=== PATIENT | female | born 1995 | race Caucasian/White ===

== ENCOUNTER 2016-03-26 16:07 | Inpatient (IN) | payer OTHER ==
[~2016-03-26] VITALS: Ht 167.6 cm; Wt 84.5 kg
[2016-03-26 16:10] VITALS: BP 126/77
--- NOTE | 2016-03-26 16:13 | NUR ---
Pt admitted to room 301 via w/c accompanied by Volunteer. Pt awake/alert/oriented. See admission database for further assessment.
[2016-03-26] MEDS ORDERED: PROMETHAZINE HCL INJ 12.5 MG in SODIUM CHLORIDE 25 ML IV PRN (16:35)
[2016-03-26] MEDS ORDERED: ONDANSETRON 4 MG (ZOFRAN) ORAL DISSOLVE TAB PO PRN (16:35)
[2016-03-26] MEDS ORDERED: MAG HYDROX/AL HYDROX/SIMETH 200-200-20/5 ML (MAG-AL PLUS) 30 ML UDC PO PRN (16:35)
[2016-03-26] MEDS ORDERED: IBUPROFEN 600 MG (MOTRIN) TAB PO PRN (16:35)
[2016-03-26] MEDS ORDERED: CALCIUM CARBONATE CHEWABLE 300 MG (TUMS) TABLET PO PRN (16:35)
[2016-03-26] MEDS ORDERED: epiNEPHrine (RACEMIC) 2.25% NEB SOLN 11.25 MG/0.5 ML VIAL INH ONE ×2 (16:45→16:56)
[2016-03-26 16:47] VITALS: BP 126/77
[2016-03-26] MEDS ORDERED: ALBUTEROL 0.083% NEB SOLUTION 2.5 MG/3 ML VIAL INH PRN (17:00)
[2016-03-26] MEDS ORDERED: DEXAMETHASONE 10 MG/ML (DECADRON) VIAL IV ONE (17:00)
[2016-03-26] MEDS ORDERED: NS FLUSH 3 ML PRN IV (17:00)
[2016-03-26 17:02] LABS: BASOPHILS % (AUTO) 0 % (0-2); EOSINOPHILS % (AUTO) 0 % (0-4); LYMPHOCYTES # (AUTO) 0.8 X10^3; MEAN CORPUSCULAR HEMOGLOBIN 28.7 PG (26.0-34.0); MEAN PLATELET VOLUME 11.1 FL (6.0-9.5); MONOCYTES # (AUTO) 0.1 X10^3; MONOCYTES % (AUTO) 2 % (3-11); NEUTROPHILS # (AUTO) 5.1 X10^3; NEUTROPHILS % (AUTO) 85 % (51-67); PLATELET COUNT 239 10^3uL (150-450); WHITE BLOOD COUNT 6.03 10^3uL (4.0-11.0)
[2016-03-26 17:03] LABS: MEAN CORPUSCULAR HGB CONC 36.7 g/dL (31.0-37.0); MEAN CORPUSCULAR VOLUME 78 FL (80-100)
[2016-03-26 17:15] LABS: ALBUMIN 4.4 g/dL (3.4-5.0); ANION GAP 18.4 MEQ/L (3-15); TOTAL PROTEIN 7.7 g/dL (6.4-8.5)
--- NOTE | 2016-03-26 17:33 | NUR ---
MED REC COMPLETED-current med list obtained from Ext Med History application and retail pharmacy ([facility]).
[2016-03-26] MEDS ORDERED: epiNEPHrine (RACEMIC) 2.25% NEB SOLN 11.25 MG/0.5 ML VIAL INH PRN (17:45)
--- NOTE | 2016-03-26 18:09 | NUR ---
Pt in semi-chan's position eating supper, watching tv. Occassional cough. states the breathing treatment (racemic epi) helped. IV Bolus infusing as ordered. 20g LBH intact.
--- NOTE | 2016-03-26 18:32 | NUR ---
UA sent to lab.
[2016-03-26 18:35] LABS: BILIRUBIN,URINE Negative (Negative); CLARITY,URINE Clear; COLOR,URINE Yellow; GLUCOSE, URINE (UA) Trace (Negative); LEUKOCYTE ESTERASE ,URINE Trace (Negative); PH,URINE 7.5 (5.0 - 8.0); UROBILINOGEN,URINE 0.2 mg/dL (0.2-1.0)
[2016-03-26 18:40] LABS: URINE CENTRIFUGED VOLUME 12 mL
[2016-03-26 18:42] LABS: RBC,URINE None Seen /HPF
[2016-03-26 19:58] VITALS: BP 120/70
--- NOTE | 2016-03-26 20:00 | NUR ---
Patient rests in bed. HOB elevated 45 degrees. Is in no respiratory distress. States that her throat is sore. Did explain to patient that her labs came back and she does have a virus. Mother and brother at bedside. Patient wanting popsicle. No other needs at present.
--- NOTE | 2016-03-26 21:00 | NUR ---
Patient breathing harder. Oxygen sat 98%. Dr in to see patient and discuss plan of care with family. Dr changed order for RT treatments. RT did another treatment, and patient rests better. Family remains at bedside.
[2016-03-26] MEDS: epiNEPHrine (RACEMIC) 2.25% NEB SOLN 11.25 MG/0.5 ML VIAL INH PRN ×2 (21:03→23:19)
[2016-03-26] MEDS: ACETAMINOPHEN 325 MG TAB (TYLENOL) PO PRN (21:37)
--- NOTE | 2016-03-26 21:37 | NUR ---
Tylenol 650mg administered per patient request for sore throat.
[2016-03-26 23:52] VITALS: BP 125/56
--- NOTE | 2016-03-27 01:00 | NUR ---
Patient resting quietly at present. Respirations even and non-labored.
[2016-03-27] MEDS: epiNEPHrine (RACEMIC) 2.25% NEB SOLN 11.25 MG/0.5 ML VIAL INH PRN ×3 (02:35→17:52)
--- NOTE | 2016-03-27 05:58 | NUR ---
Patient rested well tonight. Breathing treatments are helpful. No respiratory difficulties noted this morning. No concerns at this time.
[2016-03-27 06:10] VITALS: BP 118/77
[2016-03-27 07:43] VITALS: BP 120/70
--- NOTE | 2016-03-27 08:03 | NUR ---
NUTRITION ASSESSMENT Level 1 Patient: Sari Gonzalez Age/Sex: 20/F Date Screened: [birth year] Weight: 185.9#/84.5 kg Height: 66 inches Primary Diagnosis: acute respiratory distress, tracheobronchitis Diet Order: regular Relevant labs: N/A Food allergies: N Nutrition Assessment Criteria Age over 80: N Body Mass Index (BMI) under 19: N Admission Screening Indicates Risk? N Moderate/High Risk Diagnosis: N TPN or PPN: N NPO or clear liquid diet: N Serum Glucose <70 or >180: N/A Hgb A1c >6.7: N/A Total: 0 points Risk Screen: _X_ Patient at low nutritional risk based on available data; reevaluate in 5-7 days __ Patient at moderate nutritional risk based on available data; reevaluate in 3-5 days __ Patient at high nutritional risk; complete Nutrition Assessment within 48 hours of admission. Comments: Normally healthy female with acute respiratory distress secondary to parainfluenza 2. Pt. denies weight changes, no GI concerns. Will reassess as documented above.
[2016-03-27] MEDS: ACETAMINOPHEN 325 MG TAB (TYLENOL) PO PRN (08:11)
[2016-03-27] MEDS: NS FLUSH 3 ML DAILY IV SCH (08:11)
--- NOTE | 2016-03-27 08:11 | NUR ---
Tylenol given as ordered for c/o sore throat from coughing- states she was coughing all night. Lung sounds clear to auscultation. Stridor noted in upper airway. Pt states that breathing treatments seem to help her feel better. Will cont to monitor patient closely. call light within reach. Indep in room. Remains on Droplet precautions for Positive PCR for Parainfluenza 2.
[2016-03-27 09:18] LABS: BASOPHILS % (AUTO) 0 % (0-2); EOSINOPHILS % (AUTO) 0 % (0-4); LYMPHOCYTES # (AUTO) 2.8 X10^3; MEAN CORPUSCULAR HEMOGLOBIN 29.1 PG (26.0-34.0); MONOCYTES # (AUTO) 0.5 X10^3; MONOCYTES % (AUTO) 5 % (3-11); NEUTROPHILS # (AUTO) 7.8 X10^3; NEUTROPHILS % (AUTO) 70 % (51-67); PLATELET COUNT 233 10^3uL (150-450); WHITE BLOOD COUNT 11.11 10^3uL (4.0-11.0)
[2016-03-27 09:22] LABS: MEAN CORPUSCULAR HGB CONC 36.9 g/dL (31.0-37.0); MEAN CORPUSCULAR VOLUME 79 FL (80-100)
[2016-03-27] MEDS ORDERED: PHENOL THROAT SPRAY (CHLORASEPTIC) 177 ML BTL MM PRN (09:25)
[2016-03-27] MEDS: NS FLUSH 10 ML PRN IV (09:34)
[2016-03-27] MEDS: KETOROLAC 15 MG/ML (TORADOL) 1 ML VIAL IV PRN ×2 (09:34→17:48)
[2016-03-27] MEDS: PANTOPRAZOLE 40 MG (PROTONIX) TAB PO SCH (09:34)
[2016-03-27] MEDS: cefTRIAXone SODIUM 1,000 MG in SODIUM CHLORIDE 50 ML IV SCH (09:34)
[2016-03-27 16:00] VITALS: BP 118/72
--- NOTE | 2016-03-27 16:13 | NUR ---
Pt indep in room- Has not asked for any prn meds since Tylenol early this AM. Had a Racemic Epi Inh treatment at 0830, Ketoralac at 0930. Around 1045 pt stated she felt much better. At about 2pm patient called nurse to room, asking what plan was because she was feeling well enough to go home and expressed boredom. Dr. Mayfield notified- he went to room- patient and mother are agreeable and more comfortable staying overnight for further monitoring.
--- NOTE | 2016-03-27 17:50 | NUR ---
Pt calls staff to room- requests Ketoralac and breathing treatment. Rosie RN gave Ketoralac as ordered. Yeison RT called for treatment- He is on his way.
[2016-03-27] MEDS: SODIUM CHLORIDE 0.9% NEB SOLN 3 ML VIAL IH PRN (17:52)
--- NOTE | 2016-03-27 18:08 | NUR ---
Pt called for respiratory distress, evaluated Pt in room and I heard upper airway stridor from the door, Pt was breathing 22-25 times per minute, HR 100, SPO2 97%. 11.25 mg Racemic Epi given via SVN, stridor diminished by 80% and RR decreased to 16-20 times per minute. Coached Pt on being in a sniffing position to help open the airway and she found further relief in that. I will monitor Pt closely throughout the shift.
--- NOTE | 2016-03-27 19:45 | NUR ---
Voice is hoarse, but patient denies pain. Lungs are clear and patient denies difficulty breathing.
--- NOTE | 2016-03-27 20:30 | NUR ---
Patient denies needs. States she is having no difficulty breathing.
[2016-03-27 20:33] VITALS: BP 102/78
--- NOTE | 2016-03-27 23:50 | NUR ---
Patient resting quietly. Respirations are quiet at this time.
[2016-03-28] MEDS: NS FLUSH 10 ML PRN IV (00:06)
[2016-03-28] MEDS: KETOROLAC 15 MG/ML (TORADOL) 1 ML VIAL IV PRN (00:12)
--- NOTE | 2016-03-28 00:12 | NUR ---
Patient woke up easily with vital signs. C/o throat pain /10. Hoarse voice. Is sitting up and has increased work of breathing with gasping sound. Color good and patient able to talk without difficulty and able to swallow. Appears somewhat anxious. Toradol given and RT notified for treatment.
[2016-03-28] MEDS: epiNEPHrine (RACEMIC) 2.25% NEB SOLN 11.25 MG/0.5 ML VIAL INH PRN (00:16)
[2016-03-28] MEDS: SODIUM CHLORIDE 0.9% NEB SOLN 3 ML VIAL IH PRN (00:16)
--- NOTE | 2016-03-28 00:17 | NUR ---
Called to Pt room to assess for respiratory distress, Pt found in bed on RA, SPO2 100%, HR 80, RR 26-28 with inspiratory stridor. Pt had a very weak voice at the time of initial assessment and was only able to speak in one or two word phrases. 11.25 mg Racemic Epinephrine given with 3 cc NS via SVN, Stridor gradually decreased, Pt slowly eating ice chips which helps soothe her throat also. Will continue to monitor.
[2016-03-28 00:22] VITALS: BP 118/78
[2016-03-28 04:00] VITALS: BP 124/80
--- NOTE | 2016-03-28 06:02 | NUR ---
Patient has been quietly resting since about 0100 this morning. No further complaints and no further stridor noted this shift.
[2016-03-28] MEDS: PANTOPRAZOLE 40 MG (PROTONIX) TAB PO SCH (06:44)
[2016-03-28] MEDS ORDERED: predniSONE 20 MG (DELTASONE) TABLET PO SCH (08:00)
[2016-03-28 08:24] VITALS: BP 118/72
[2016-03-28] MEDS: NS FLUSH 3 ML DAILY IV SCH (08:57)
[2016-03-28] MEDS: cefTRIAXone SODIUM 1,000 MG in SODIUM CHLORIDE 50 ML IV SCH (08:58)
--- NOTE | 2016-03-28 10:01 | NUR ---
Pt. has been resting in bed. Denies feeling short of breath this morning. Her voice is hoarse and she has had a mildly productive cough that she reports having small amounts of clear sputum out. She denies pain other than a sore throat. No n/v. IV remains patent and she has received her Rocephin this am. Denies needs at this time.
[2016-03-28 11:33] VITALS: BP 122/74
[2016-03-28 15:48] VITALS: BP 128/72
--- NOTE | 2016-03-28 16:13 | NUR ---
Reviewed discharge medications with patient. Provided patient handout information for new medications. No additional questions or concerns. Patient verbalized understanding of medications.
--- NOTE | 2016-03-28 16:20 | NUR ---
Discharge instructions reviewed with pt. All questions answered. Copy given to pt. and original signed.
--- NOTE | 2016-03-28 16:26 | NUR ---
Pt. dismissed to home, ambulatory, accompanied off unit by STEM TEACHER, significant other to drive pt. home. Belongings sent with pt.
== END 2016-03-28 16:26 | disposition home or self-care (01) | DRG 203 ==
LOC: OBSVTOIN 16:07 → MED/SURG 16:07 → UNDOADMOB 16:07
PROVIDERS: ADMIT Internal Medicine; ATTEND Internal Medicine
DX: J20.4 Acute bronchitis due to parainfluenza virus (principal); E86.0 Dehydration; L43.9 Lichen planus, unspecified; J04.10 Acute tracheitis without obstruction; B96.89 Other specified bacterial agents as the cause of diseases classified elsewhere
CPT/HCPCS: 36415; 80053; 81003; 81015; 85025; 86140; 87088; 87486; 87581; 87633; 87798; 94640; 94760